=== PATIENT | female | born 1985 | race Caucasian/White ===

== ENCOUNTER 2021-02-24 12:54 | Inpatient (IN) ==
[2021-02-24 14:58] LABS: Basophils # (auto) 0.01 K/uL (0-0.2); Basophils % (auto) 0.1 %; Eosinophils # (auto) 0.02 K/uL (0-0.5); Eosinophils % (auto) 0.1 %; Hemoglobin 14.7 g/dL (12.0-16.0); Immature Granulocytes # (auto) 0.03 K/uL (0.00-0.02); Immature Granulocytes % (auto) 0.2 %; Lymphocytes # (auto) 0.91 K/uL (1.2-3.4); Lymphocytes % (auto) 6.1 %; Mean Corpuscular Hemoglobin 29.6 pg (25-34); Mean Corpuscular Volume 84.7 fL (80-100); Mean Platelet Volume 11.3 fL (7.4-10.4); Monocytes # (auto) 1.19 K/uL (0.11-0.59); Neutrophils # (auto) 12.73 K/uL (1.4-6.5); Neutrophils % (auto) 85.5 %; Platelet Count 238 K/uL (130-400); RDW Coefficient of Variation 13.7 % (11.5-14.5); RDW Standard Deviation 41.9 fL (36.4-46.3); Red Blood Count 4.96 M/uL (4.2-5.4); White Blood Count 14.89 K/uL (4.8-10.8)
[2021-02-24 15:15] LABS: Albumin Level 3.9 gm/dl (3.4-5.0); BUN Creatinine Ratio 9.7 (10-20); Calcium 9.7 mg/dl (8.5-10.1); Creatinine Clr Calc Pharmacy 100.3 ml/min; Est GFR (African American) 116.8 ml/min; Est GFR (Non-African American) 100.7 ml/min; Potassium 3.9 mmol/L (3.5-5.1)
[2021-02-24 15:18] LABS: Albumin Globulin Ratio 0.9 (0.9-2); Bilirubin,Total 0.5 mg/dl (0.2-1); Globulin 4.2 gm/dl (2.5-4.0); Total Protein 8.1 gm/dl (6.4-8.2)
[2021-02-24] MEDS ORDERED: ONDANSETRON INJ 2 MG/ML 2 ML VIAL IV STA (15:42)
[2021-02-24] MEDS ORDERED: MoRPHine SULFATE 4 MG/ML 1 ML CARP\\VIAL IV STA (15:42)
[2021-02-24] MEDS ORDERED: SODIUM CHLORIDE 0.9% 1000ML 1,000 ML IV SCH (15:43)
--- NOTE | 2021-02-24 15:47 | Emergency Department Note ---
History of Present Illness General Chief complaint: Abdominal Pain Stated complaint: ABDOMINAL PAIN, FEVER Time Seen by Provider: 02/24/21 15:15 History of Present Illness Maximum Pain Intensity: 5 Patient is a 35-year-old female who presents emergency department for evaluation of abdominal pain. Her symptoms started yesterday. It was around noon, when she began to have some sharp mid abdominal pain. She thought that it was gas pain because if she had some gas it helped a little bit initially. The pain has progressively gotten worse. It kept her up overnight. She documented a fever this morning of 101.8 F. She was little nauseous yesterday, but did not vomit. Nausea is better today but she still has no appetite. She had a few episodes of diarrhea yesterday. She denies any urinary symptoms. Her last menstrual period started last week and is tapering off. She states the pain is a constant, dull ache kind of in the mid abdomen, then becomes more sharp and contraction-like in the lower abdomen, radiating slightly toward the left. She has never had pain like this previously. She has a history of C-sections x2 and a tubal ligation. She denies any abnormal vaginal discharge. She states that it is highly unlikely that she is . Home Medications Medication Instructions Recorded Confirmed Type Lactobacillus acidophilus 10 10,000 mmu cells PO DAILY 02/24/21 02/24/21 History billion cell capsule (Probiotic) albuterol sulfate 90 mcg/actuation 2 puff INHALATION .Q4-6HR PRN 02/24/21 02/24/21 History aerosol inhaler cetirizine 10 mg tablet (Zyrtec) 10 mg PO DAILY 02/24/21 02/24/21 History cholecalciferol (vitamin D3) 25 0 mcg PO DAILY 02/24/21 02/24/21 History mcg (1,000 unit) capsule (Vitamin D3) elderberry fruit 460 mg-elderberry 1 cap PO DAILY 02/24/21 02/24/21 History flower 115 mg capsule fluticasone furoate 200 1 inh INHALATION DAILY 02/24/21 02/24/21 History mcg-vilanterol 25 mcg/dose inhalation powder (Breo Ellipta) folic acid 0.8 mg capsule 0.8 mg PO DAILY 02/24/21 02/24/21 History multivitamin 1 tab PO DAILY 02/24/21 02/24/21 History omega 3-wqd-tfq-fish oil 1,000 mg 1 cap PO DAILY 02/24/21 02/24/21 History (120 mg-180 mg) capsule (Fish Oil) zinc 50 mg tablet 50 mg PO DAILY 02/24/21 02/24/21 History Allergies Allergy/AdvReac Type Severity Reaction Status Date / Time No Known Allergies Allergy Verified 02/24/21 15:28 Past Med/Surg History Medical History (Updated 02/24/21 @ 17:40 by Marcos Nicole) Asthma Environmental and seasonal allergies Lactose intolerance Surgical History (Updated 02/24/21 @ 17:31 by Marcos Nicole) H/O section H/O tubal ligation Social History (Updated 02/24/21 @ 17:32 by Marcos Nicole) Smoking Status: Former smoker Second Hand Exposure: No; Hx Alcohol Use: Yes Alcohol type: beer, wine and hard liquor Hx Substance Use: No Preferred Language: Bulgarian Communication Ability: Effective [employer] Research Scientist Required: No Beliefs That Will Affect Care: Holiness Holiness Beliefs: Carolannh's Wittness marital status: Current Living Situation: Spouse and Family Current Living Situation Comment: 2 children. Other Information That Helps Us Care for You: No Feels Safe at Home: Yes Safety Concerns: Feels Safe At This Time Assistive Devices: None Review of Systems A total of 10 systems reviewed and were otherwise negative Physical Exam Vital Signs Vital Signs - 24 hr 02/24/21 13:16 02/24/21 16:02 02/24/21 16:06 Temperature 37.2 C Temperature Source Temporal Artery Scan Pulse Rate 96 H 80 Pulse Rate [Right] 85 Pulse Rhythm [Right] Regular Pulse Strength [Right] Normal Respiratory Rate 19 18 18 Respiratory Effort / Characteristics Non-Labored Spontaneous Respiratory Depth Normal Respiratory Pattern Regular Blood Pressure 111/78 113/62 Blood Pressure [Right Arm] 113/62 Blood Pressure Mean 89 79 Blood Pressure Mean [Right Arm] 79 Blood Pressure Position [Right Arm] Lying Pulse Oximetry 100 100 Oxygen Delivery Method Room Air Room Air Sepsis Recent Fever Within 48 Hours No Sepsis New/Unexplained Change in Mental Status N/A Sepsis Action Taken by Nursing No Action Required 02/24/21 17:00 Temperature Temperature Source Pulse Rate 81 Pulse Rate [Right] Pulse Rhythm [Right] Pulse Strength [Right] Respiratory Rate 19 Respiratory Effort / Characteristics Respiratory Depth Respiratory Pattern Blood Pressure 112/63 Blood Pressure [Right Arm] Blood Pressure Mean 79 Blood Pressure Mean [Right Arm] Blood Pressure Position [Right Arm] Pulse Oximetry Oxygen Delivery Method Sepsis Recent Fever Within 48 Hours Sepsis New/Unexplained Change in Mental Status Sepsis Action Taken by Nursing CONSTITUTIONAL: Patient is an uncomfortable appearing 35-year-old female who is awake and alert and laying on the gurney. is at the bedside. EYES: Pupils equal, round, reactive to light and accommodation. EOMs intact without nystagmus. Sclera are anicteric. ENT: Tympanic membranes intact, with normal landmarks. External canals are clear. Oral and nasopharynx are clear. Mucous membranes are moist, no lesions, tongue and gums appear normal. CARDIOVASCULAR: Regular rate and rhythm, with normal S1 and S2, no murmur or gallop or rub is heard. Peripheral pulses easily palpable. RESPIRATORY: Breath sounds equal and clear to auscultation without wheezes, rales, or rhonchi heard. Full and equal chest expansion without accessory muscle use or retractions. ABDOMEN: Bowel sounds are present. Abdomen is soft, nondistended, nontender to percussion, but moderately tender to palpation in the right lower quadrant, suprapubic and left lower quadrant area. No guarding or rebound. INTEGUMENTARY: No lesions or rash, normal skin turgor. LYMPH: No lymphadenopathy. Course Course The patient was seen and assessed as above. Old records were reviewed. She presents the emergency department for evaluation of abdominal pain. She docume nted a fever this morning. Critical pathways were implemented prior to my assessment of the patient, and CBC with differential, CMP and lipase have been collected. Urinalysis was ordered. She was hydrated with normal saline solution and medicated with morphine 4 mg and Zofran [address] scan of the abdomen and pelvis with IV contrast was ordered. Laboratory studies note an elevated white count of 14,900 with left shift and bandemia noted. Electrolytes and renal functions are normal. Lipase is within normal limits. Urine microscopy is not indicative of infection. Urine test is negative. CT scan of the abdomen and pelvis with IV contrast is consistent with acute sigmoid diverticulitis, with evidence for microperforation. Possible small intramural abscess within the sigmoid colon noted measuring 1.3 cm with no drainable fluid collection. Patient was ordered Zosyn 4.5 mg IV. Laboratory studies and CT scan findings were reviewed with her. Case was discussed with attending physician. I did review the patient's CT with general surgery on-call, Dr. Fierro, who agreed with medical admission for IV antibiotics. [facility]. Administered Medications Hydromorphone HCl (Hydromorphone Inj 0.5 Mg/0.5 Ml Syr) 0.5 mg IV Q2H PRN PRN Reason: Pain - Breakthrough Stop: 03/10/21 20:07 Last Admin: 02/24/21 20:37 Dose: 0.5 mg Documented by: [id number] Piperacillin Sod/Tazobactam (Sod 3.375 gm/ Dextrose) 115 mls @ 28.75 mls/hr IV Q8H CARLO; Protocol Stop: 03/06/21 22:59 Last Admin: 02/24/21 22:27 Dose: 28.8 mls/hr Documented by: [id number] Lactated Ringer's (Lr) 1,000 mls @ 80 mls/hr IV .[id number] CARLO Stop: 02/25/21 21:07 Last Admin: 02/24/21 20:17 Dose: 80 mls/hr Documented by: [id number] Ondansetron HCl (Ondansetron Inj 2 Mg/Ml 2 Ml Vial) 4 mg IV Q6H PRN PRN Reason: Nausea Stop: 03/26/21 20:07 Last Admin: 02/24/21 21:13 Dose: 4 mg Documented by: [id number] Discontinued Medications Sodium Chloride (Nss 1000ml) 1,000 mls @ 999 mls/hr IV .[id number] CARLO Stop: 02/24/21 16:43 Last Infusion: 02/24/21 17:04 Dose: 0 mls/hr Documented by: [id number] Admin: 02/24/21 16:03 Dose: 999 mls/hr Documented by: [id number] Sodium Chloride (Nss 1000ml) 1,000 mls @ 250 mls/hr IV .Q4H CARLO Stop: 03/26/21 15:44 Last Admin: 02/24/21 20:17 Dose: Not Given Documented by: [id number] Admin: 02/24/21 20:16 Dose: Not Given Documented by: [id number] Infusion: 02/24/21 20:16 Dose: 0 mls/hr Documented by: [id number] Admin: 02/24/21 18:06 Dose: 250 mls/hr Documented by: [id number] Piperacillin Sod/Tazobactam Sod (Zosyn) 4.5 gm in 120 mls @ 240 mls/hr IV NOW ONE Stop: 02/24/21 17:01 Last Infusion: 02/24/21 17:13 Dose: 0 mls/hr Documented by: [id number] Admin: 02/24/21 16:42 Dose: 240 mls/hr Documented by: [id number] Ioversol (Optiray 320 100ml) 94 ml IV ONCE ONE Stop: 02/24/21 16:08 Last Admin: 02/24/21 16:07 Dose: 1 ml Documented by: [id number] Morphine Sulfate (Morphine Sulfate 4 Mg/Ml 1 Ml Carp\Vial) 4 mg IV NOW STA Stop: 02/24/21 15:43 Last Admin: 02/24/21 15:58 Dose: 4 mg Documented by: [id number] Ondansetron HCl (Ondansetron Inj 2 Mg/Ml 2 Ml Vial) 4 mg IV NOW STA Stop: 02/24/21 15:43 Last Admin: 02/24/21 15:56 Dose: 4 mg Documented by: [id number] Medical Decision Making Differential Diagnosis Differential diagnoses include gastroenteritis, pancreatitis, appendicitis, pyelonephritis, urinary tract infection, renal colic, diverticulitis, bowel obstruction, intussusception, hernia, ovarian torsion, ruptured ovarian cyst, ectopic , . Medical Records Attestation: I reviewed the patient's medical records. Home Medications Current Medication List: was personally reviewed by me Laboratory Data Attestation: I reviewed the patient's lab results. Result diagrams: 02/24/21 14:49 02/24/21 14:49 Lab Results 02/24/21 02/24/21 02/24/21 Range/Units 14:49 14:49 15:48 WBC 14.89 H (4.8-10.8) K/uL RBC 4.96 (4.2-5.4) M/uL Hgb 14.7 (12.0-16.0) g/dL Hct 42.0 (37-47) % MCV 84.7 (80-100) fL MCH 29.6 (25-34) pg MCHC 35.0 (32-36) g/dL RDW Std Deviation 41.9 (36.4-46.3) fL RDW Coeff of Zaira 13.7 (11.5-14.5) % Plt Count 238 (130-400) K/uL MPV 11.3 H (7.4-10.4) fL Immature Gran % (Auto) 0.2 % Neut % (Auto) 85.5 % Lymph % (Auto) 6.1 % [place] % (Auto) 8.0 % Eos % (Auto) 0.1 % Baso % (Auto) 0.1 % Neut # (Auto) 12.73 H (1.4-6.5) K/uL Lymph # (Auto) 0.91 L (1.2-3.4) K/uL [place] # (Auto) 1.19 H (0.11-0.59) K/uL Eos # (Auto) 0.02 (0-0.5) K/uL Baso # (Auto) 0.01 (0-0.2) K/uL Immature Gran # (Auto) 0.03 H (0.00-0.02) K/uL Sodium 138 (136-145) mmol/L Potassium 3.9 (3.5-5.1) mmol/L Chloride 107 (98-107) mmol/L Carbon Dioxide 23 (21-32) mmol/L Anion Gap 8.0 (3-11) BUN 7 (7-18) mg/dl Creatinine 0.77 (0.6-1.2) mg/dl Est Cr Clr Drug Dosing 100.3 ml/min Est GFR ( Amer) 116.8 ml/min Est GFR (Non-Af Amer) 100.7 ml/min BUN/Creatinine Ratio 9.7 L (10-20) Glucose 82 (70-99) mg/dl Calcium 9.7 (8.5-10.1) mg/dl Total Bilirubin 0.5 (0.2-1) mg/dl AST 19 (15-37) U/L ALT 26 (12-78) U/L Alkaline Phosphatase 90 (45-117) U/L Total Protein 8.1 (6.4-8.2) gm/dl Albumin 3.9 (3.4-5.0) gm/dl Globulin 4.2 H (2.5-4.0) gm/dl Albumin/Globulin Ratio 0.9 (0.9-2) Lipase 89 (73-393) U/L Urine Color Yellow Urine Appearance Clear (Clear) Urine pH 5.5 (4.5-7.5) Ur Specific [place] 1.016 (1.000-1.030) Urine Protein Negative (Negative) Urine Glucose (UA) Negative (Negative) Urine Ketones Trace H (Negative) Urine Blood 1+ H (Negative) Urine Nitrite Negative (Negative) Urine Bilirubin Negative (Negative) Urine Urobilinogen Negative (Negative) Ur Leukocyte Esterase Negative (Negative) Urine WBC (Auto) 0 (0-5) /hpf Urine RBC (Auto) 0-4 (0-4) /hpf U Hyaline Cast (Auto) 1-5 (0-5) /lpf U Epithel Cells (Auto) 10-20 H (0-5) /lpf Urine Bacteria (Auto) Negative (Negative) POC Ur Test (NEG) COVID-19 Eval Order SARS-CoV-2 (PCR) (Negative) 02/24/21 02/24/21 02/24/21 Range/Units 15:48 17:28 17:28 WBC (4.8-10.8) K/uL RBC (4.2-5.4) M/uL Hgb (12.0-16.0) g/dL Hct (37-47) % MCV (80-100) fL MCH (25-34) pg MCHC (32-36) g/dL RDW Std Deviation (36.4-46.3) fL RDW Coeff of Zaira (11.5-14.5) % Plt Count (130-400) K/uL MPV (7.4-10.4) fL Immature Gran % (Auto) % Neut % (Auto) % Lymph % (Auto) % [place] % (Auto) % Eos % (Auto) % Baso % (Auto) % Neut # (Auto) (1.4-6.5) K/uL Lymph # (Auto) (1.2-3.4) K/uL [place] # (Auto) (0.11-0.59) K/uL Eos # (Auto) (0-0.5) K/uL Baso # (Auto) (0-0.2) K/uL Immature Gran # (Auto) (0.00-0.02) K/uL Sodium (136-145) mmol/L Potassium (3.5-5.1) mmol/L Chloride (98-107) mmol/L Carbon Dioxide (21-32) mmol/L Anion Gap (3-11) BUN (7-18) mg/dl Creatinine (0.6-1.2) mg/dl Est Cr Clr Drug Dosing ml/min Est GFR ( Amer) ml/min Est GFR (Non-Af Amer) ml/min BUN/Creatinine Ratio (10-20) Glucose (70-99) mg/dl Calcium (8.5-10.1) mg/dl Total Bilirubin (0.2-1) mg/dl AST (15-37) U/L ALT (12-78) U/L Alkaline Phosphatase (45-117) U/L Total Protein (6.4-8.2) gm/dl Albumin (3.4-5.0) gm/dl Globulin (2.5-4.0) gm/dl Albumin/Globulin Ratio (0.9-2) Lipase (73-393) U/L Urine Color Urine Appearance (Clear) Urine pH (4.5-7.5) Ur Specific [place] (1.000-1.030) Urine Protein (Negative) Urine Glucose (UA) (Negative) Urine Ketones (Negative) Urine Blood (Negative) Urine Nitrite (Negative) Urine Bilirubin (Negative) Urine Urobilinogen (Negative) Ur Leukocyte Esterase (Negative) Urine WBC (Auto) (0-5) /hpf Urine RBC (Auto) (0-4) /hpf U Hyaline Cast (Auto) (0-5) /lpf U Epithel Cells (Auto) (0-5) /lpf Urine Bacteria (Auto) (Negative) POC Ur Test NEG (NEG) COVID-19 Eval Order Covid19 at [facility] SARS-CoV-2 (PCR) NEGATIVE (Negative) Imaging Data Attestation: I personally reviewed and interpreted this imaging study as follows: Radiologist's Impression: Abdomen/Pelvis CT 02/24/21 15:42 CT OF THE ABDOMEN AND PELVIS WITH CONTRAST CLINICAL HISTORY: LOWER ABD PAIN, FEVER COMPARISON STUDY: Pelvic ultrasound December 31, 2013. TECHNIQUE: Following IV administration of 94 mL of Optiray, axial images of the abdomen and pelvis were obtained from the lung bases to the proximal femurs. Images were reviewed in the axial, sagittal, and coronal planes. IV contrast was administered without complication. Automated exposure control was utilized for the study. A dose lowering technique was utilized adhering to the principles of ALARA. CT DOSE: 425.23 mGy.cm FINDINGS: Lung bases are unremarkable. Hepatic steatosis is noted. There is no biliary or pancreatic ductal dilatation. The spleen, adrenal glands, kidneys and pancreas are unremarkable. There is no hydronephrosis. There is no evidence for a bowel obstruction. The appendix is normal. Note is made of colonic d iverticulosis. Moderate wall thickening of the mid sigmoid colon with moderate pericolonic infiltration and adjacent fluid is noted. There is a 1.3 cm peripherally enhancing hypodense focus within the sigmoid colon on axial image 310 of 416. This could reflect a small intramural abscess. There is no drainable fluid collection. There are a few tiny locules of extraluminal gas within the sigmoid mesentery. Major vasculature is patent. No acute fracture or suspicious lesion is identified within visualized skeletal structures. IMPRESSION: Findings consistent with acute sigmoid diverticulitis. Minimal extraluminal gas within the sigmoid mesentery suggests microperforation. Possible small intramural abscess within the sigmoid colon, measuring 1.3 cm. No drainable fluid collection. ACT 112: Negative or not required by law. Electronically signed by: Eric Buckley M.D. 02/24/2021 4:23 PM MDM Narrative See ED course Impression & Plan Sigmoid diverticulitis, Perforation of sigmoid colon due to diverticulitis Discharge Plan Visit Data Chief Complaint: Abdominal Pain Stated Complaint: ABDOMINAL PAIN, FEVER ED Provider: Lela Calvert ED Midlevel Provider: Marcos Nicole Discharge Problem: Sigmoid diverticulitis, Perforation of sigmoid colon due to diverticulitis Patient Disposition: Admitted As Inpatient Discharge Instructions Interventions: ED Discharge Assessment Last Done: 02/24/21 19:54
[2021-02-24 16:06] LABS: Appearance Urine Clear (Clear); Bacteria Urine Automated Negative (Negative); Bilirubin Urine Negative (Negative); Blood Urine 1+ (Negative); Color Urine Yellow; Glucose Urine UA Negative (Negative); Ketones Urine Trace (Negative); Leukocyte Esterase Urine Negative (Negative); Nitrite Urine Negative (Negative); Protein Urine Negative (Negative); RBC Urine Automated 0-4 /hpf (0-4); Specific Gravity Urine 1.016 (1.000-1.030); Urobilinogen Urine Negative (Negative); WBC Urine Automated 0 /hpf (0-5); pH Urine 5.5 (4.5-7.5)
[2021-02-24] MEDS ORDERED: OPTIRAY 320 100ml IV ONE (16:07)
--- NOTE | 2021-02-24 16:24 | CT Scan Report ---
CT OF THE ABDOMEN AND PELVIS WITH CONTRAST CLINICAL HISTORY: LOWER ABD PAIN, FEVER COMPARISON STUDY: Pelvic ultrasound December 31, 2013. TECHNIQUE: Following IV administration of 94 mL of Optiray, axial images of the abdomen and pelvis we re obtained from the lung bases to the proximal femurs. Images were reviewed in the axial, sagittal, and coronal planes. IV contrast was administered without complication. Automated exposure control wa s utilized for the study. A dose lowering technique was utilized adhering to the principles of ALARA . CT DOSE: 425.23 mGy.cm FINDINGS: Lung bases are unremarkable. Hepatic steatosis is noted. There is no biliary or pancreatic ductal dilatation. The spleen, adrenal glands, kidneys and pancreas are unremarkable. There is no hyd ronephrosis. There is no evidence for a bowel obstruction. The appendix is normal. Note is made of co lonic diverticulosis. Moderate wall thickening of the mid sigmoid colon with moderate pericolonic inf iltration and adjacent fluid is noted. There is a 1.3 cm peripherally enhancing hypodense focus withi n the sigmoid colon on axial image 310 of 416. This could reflect a small intramural abscess. There i s no drainable fluid collection. There are a few tiny locules of extraluminal gas within the sigmoid mesentery. Major vasculature is patent. No acute fracture or suspicious lesion is identified within v isualized skeletal structures. IMPRESSION: Findings consistent with acute sigmoid diverticulitis. Minimal extraluminal gas within t he sigmoid mesentery suggests microperforation. Possible small intramural abscess within the sigmoid colon, measuring 1.3 cm. No drainable fluid collection. ACT 112: Negative or not required by law. Electronically signed by: Eric Buckley M.D. 02/24/2021 4:23 PM
[2021-02-24] MEDS ORDERED: PIPERACILL/TAZOBAC CONSULT ACTIVE PRN ×2 (16:32→20:08)
[2021-02-24] MEDS ORDERED: PIPERACILLIN/TAZOBACTAM 4.5 GM/120 ML BAG IV ONE (16:32)
[2021-02-24] MEDS: SODIUM CHLORIDE 0.9% 1000ML 1,000 ML IV SCH ×3 (18:06→20:17)
--- NOTE | 2021-02-24 18:09 | Hospitalist Consultation ---
Date of Consultation February 24, 2021 Assessment & Plan (1) Sigmoid diverticulitis: Yoselin is a 35-year-old female with a notable past medical history of asthma and X2 with tubal ligation who presented to [facility] for evaluation of abdominal pain x 1 day, subsequently found to have Evidence of acute sigmoid diverticulitis with possible microperforation and small intramural abscess. She is hemodynamically stable. Acute Sigmoid Diverticulitis * In the clinical context of LLQ abdominal pain x 1 day and fevers * CT-A/P Revealing of acute sigmoid diverticulitis with possible small microperforation and 1.3 cm intramural abscess * Lytes, CBC reviewed - stable * Consult General Surgery for aid in management / planning for any need for aspiration / procedural intervention * Admit to MS/Tele for hemodynamic monitoring in setting of likely microperforation and small abscess * Zosyn 3.375mg q8h * NPO * CBC, CMP qAM * KUB in AM, evaluate for free air Of note, patient identifies as a Sabianist and has requested that she not receive any sort of blood products, including albumin, immunoglobulins, clotting factors, hemoglobin/packed blood products, interferons. She has requested that in any special circumstance, she and her power of attorneywho is her husbandare to be spoken to first. Asthma * Continue home inhalers - Breo, Albuterol PRN * No acute needs, saturating well on RA Code: FULL CODE PPX: SCDs, low risk FEN/GI: NPO. mIVF = LR @ 80cc/hr, stop after 2 bags Dispo: MS/Tele (2) Asthma: History of Present Illness Reason for Consultation: diverticulitis Attending Physician: Mia Sosa DO History of Present Illness Yoselin is a 35-year-old female with a notable past medical history of asthma and X2 with tubal ligation who presented to [facility] for evaluation of abdominal pain. She reports that this began yesterday, initially beginning as a somewhat crampy, dull intermittent pain within the lower quadrants. She said that it got much worse yesterday evening, so much that it interrupted her sleep. Thereafter, she did develop more sharp left lower quadrant pain. She also had a T-max of approximately 101.8 at home. She did endorse some nausea without vomiting. Denies any major changes in her bowel movements, other than may be more loose stool yesterday. No hematochezia or melena. She has not taken anything for pain prior to arrival. She says that her last menstrual period ended several days ago, up until this time they have been otherwise regular. Denies any intermittent spotting or bleeding. No other complaints. Regarding her past medical history, it is significant for asthma for which she takes of Breo and albuterol inhaler as needed. She also endorses having cervical HPV once in the past with subsequent biopsy. She also endorses occasionally using medical marijuana for her anxiety. She has no personal history of bowel disease or family history of bowel disease. Denies any history of inflammatory bowel disease. Abdominal surgery - c/s x 2. FHX - Notes that her mom had diverticulitis in her older years, but otherwise no problems throughout. Endorses diabetes in her maternal family. Also says that her paternal grandfather had multiple strokes and heart attacks.. SHX - She denies smoking cigarettes or tobacco use. She denies regular alcohol use. Medical marijuana as above. Of note, patient identifies as a Sabianist and has requested that she not receive any sort of blood products, including albumin, immunoglobulins, clotting factors, hemoglobin/packed blood products, interferons. She has requested that in any special circumstance, she and her power of attorneywho is her husbandare spoken to first. In the ED, patient was found to be afebrile and hemodynamically stable. Did undergo CT of the abdomen pelvis, which showed diverticulitis with possible small microperforation and intramural abscess. Given IV fluids, as well as morphine and Zofran. Received 1 L bolus of normal saline. Allergies Allergy/AdvReac Type Severity Reaction Status Date / Time No Known Allergies Allergy Verified 02/24/21 15:28 Home Medications Medication Instructions Recorded Confirmed Type Lactobacillus acidophilus 10 10,000 mmu cells PO DAILY 02/24/21 02/24/21 History billion cell capsule (Probiotic) albuterol sulfate 90 mcg/actuation 2 puff INHALATION .Q4-6HR PRN 02/24/21 02/24/21 History aerosol inhaler cetirizine 10 mg tablet (Zyrtec) 10 mg PO DAILY 02/24/21 02/24/21 History cholecalciferol (vitamin D3) 25 0 mcg PO DAILY 02/24/21 02/24/21 History mcg (1,000 unit) capsule (Vitamin D3) elderberry fruit 460 mg-elderberry 1 cap PO DAILY 02/24/21 02/24/21 History flower 115 mg capsule fluticasone furoate 200 1 inh INHALATION DAILY 02/24/21 02/24/21 History mcg-vilanterol 25 mcg/dose inhalation powder (Breo Ellipta) folic acid 0.8 mg capsule 0.8 mg PO DAILY 02/24/21 02/24/21 History multivitamin 1 tab PO DAILY 02/24/21 02/24/21 History omega 0-xvc-xil-fish oil 1,000 mg 1 cap PO DAILY 02/24/21 02/24/21 History (120 mg-180 mg) capsule (Fish Oil) zinc 50 mg tablet 50 mg PO DAILY 02/24/21 02/24/21 History amoxicillin 875 mg-potassium 1 tab PO BID 11 Days #22 tab 02/27/21 Rx clavulanate 125 mg tablet (Augmentin) Patient History Medical History (Updated 02/28/21 @ 00:08 by Latonya Harrell) Asthma Environmental and seasonal allergies Lactose intolerance Perforation of sigmoid colon due to diverticulitis Surgical History (Updated 02/24/21 @ 17:31 by Marcos Nicole) H/O section H/O tubal ligation Social History (Updated 02/24/21 @ 17:32 by Marcos Nicole) Smoking Status: Former smoker Second Hand Exposure: No; Hx Alcohol Use: Yes Alcohol type: beer, wine and hard liquor Hx Substance Use: No Preferred Language: Moldovan Communication Ability: Effective Drug Discovery Informatics Specialist Required: No Beliefs That Will Affect Care: Oriental Orthodox Oriental Orthodox Beliefs: Jehovah's Wittness marital status: Current Living Situation: Spouse and Family Current Living Situation Comment: 2 children. Feels Safe at Home: Yes Assistive Devices: None Review of Systems Review of Systems: Constitutional: +fevers, as noted in HPI Eyes: Denies double vision, vision change, eye pain ENT: Denies ear pain, sore throat, sinus pain Cardiovascular: Denies Chest pain, chest pressure, palpitations, extremity swelling Respiratory: Denies shortness of breath, cough, sputum production, difficulty breathing Gastrointestinal: + abdominal pain, +nausea, no vomiting, constipation Genitourinary: Denies urinary symptoms including dysuria Musculoskeletal: Denies weakness, muscle aches/pain, joint aches/pain Integumentary: Denies rash, lesions, bruising Neurological: Denies headache, numbness, tingling, focal weakness Physical Exam Physical Exam: General: Overall, well but tired appearing 35-year-old female who is lying back in her hospital bed, relaxed upon my arrival. She is watching TV. She is freely conversive and alert and oriented completely throughout her discussion. No acute distress. HEENT: NCAT. Eyes - Sclera are white, anicteric, and without injection. PERRL. EOMs display full ROM bilaterally. Mouth - MMM with no tonsillar edema or exudates. Nose - nasal turbinates are uninflamed and without discharge. Ears - External ears appears healthy b/l with no erythema or rashes; TMs displayed white reflex b/l and are non-bulging, uninflamed, and reveal no signs of fluid accumulation. Cardiac: Normal rate and regular rhythm; S1 and S2 present with no murmurs, rubs, or gallops. Pulmonary: Good respiratory effort with symmetric expansion of the chest. No use of accessory muscles. Lungs were clear to auscultation bilaterally with no crackles or wheezes. Abdominal: Normoactive bowel sounds. Abdomen was soft and nondistended. There is significant left lower quadrant and suprapubic tenderness to palpation. Facial grimacing evident, but no rebound or guarding. No CVA tenderness Extremities: Upper and lower extremities are warm and well perfused. Psych: Well-developed, well-nourished, appropriately dressed for occasion. Behavior is cooperative and appropriate. Affect is WNL. Insight is appropriate. Results & Data Results & Data ([facility]) Vital Signs (Past 12 Hours) Vital Signs Temp Pulse Pulse Resp BP BP Pulse Ox 02/24/21 17:00 81 19 112/63 02/24/21 16:06 85 18 113/62 100 02/24/21 16:02 80 18 113/62 02/24/21 13:16 37.2 C 96 H 19 111/78 100 Resident Activity Tracking Resident Involvement: Resident Care Provided Care Provided: Adult [facility] Medicine
--- NOTE | 2021-02-24 18:37 | Surgery Consultation ---
Date of Consultation February 24, 2021 Assessment & Plan (1) Sigmoid diverticulitis: pt is a 35 year-old female who presents to [facility] with 2one day history lower abdominal pain, CT scan- IMPRESSION: Findings consistent with acute sigmoid diverticulitis. Minimal extraluminal gas within the sigmoid mesentery suggests microperforation. Possible small intramural abscess within the sigmoid colon, measuring 1.3 cm. No drainable fluid collection. no emergent surgery indication now, i agree with medicine team admit pt to hospital conservative treatment first, NPO, IV fluid, iv antibiotic, control pain, repeat labs in morning, may need surgery treatment if pt's condition is worse, pt understood, she agrees with the treatment plan, I answered all questions, will F/U, History of Present Illness Reason for Consultation: diverticulitis Requesting Physician: Quyen Stratton DO Attending Physician: Hollis Daigle MD History of Present Illness CC: abdominal pain History of Present Illness Yoselin is a 35-year-old female with a notable past medical history of asthma and X2 with tubal ligation who presented to [facility] for evaluation of abdominal pain. She reports that this began yesterday, initially beginning as a somewhat crampy, dull intermittent pain within the lower quadrants. She said that it got much worse yesterday evening, so much that it interrupted her sleep. Thereafter, she did develop more sharp left lower quadrant pain. She also had a T-max of approximately 101.8 at home. She did endorse some nausea without vomiting. Denies any major changes in her bowel movements, other than may be more loose stool yesterday. No hematochezia or melena. She has not taken anything for pain prior to arrival. She says that her last menstrual period ended several days ago, up until this time they have been otherwise regular. Denies any intermittent spotting or bleeding. No other complaints. Regarding her past medical history, it is significant for asthma for which she takes of Breo and albuterol inhaler as needed. She also endorses having cervical HPV once in the past with subsequent biopsy. She also endorses occasionally using medical marijuana for her anxiety. She has no personal history of bowel disease or family history of bowel disease. Denies any history of inflammatory bowel disease. Abdominal surgery - c/s x 2. FHX - Notes that her mom had diverticulitis in her older years, but otherwise no problems throughout. Endorses diabetes in her maternal family. Also says that her paternal grandfather had multiple strokes and heart attacks.. SHX - She denies smoking cigarettes or tobacco use. She denies regular alcohol use. Medical marijuana as above. Of note, patient identifies as a Judaism and has requested that she not receive any sort of blood products, including albumin, immunoglobulins, clotting factors, hemoglobin/packed blood products, interferons. She has requested that in any special circumstance, she and her power of attorneywho is her husbandare spoken to first. In the ED, patient was found to be afebrile and hemodynamically stable. Did undergo CT of the abdomen pelvis, which showed diverticulitis with possible small microperforation and intramural abscess. Given IV fluids, as well as morphine and Zofran. Received 1 L bolus of normal saline. I ( Ricardo Fierro mD ) got a call for consult acute diverticulitis, I reviewed pt's H/P, labs, CT scan with pt, now pt feels better, less lower abdominal pain, no fever now, Allergies Allergy/AdvReac Type Severity Reaction Status Date / Time No Known Allergies Allergy Verified 02/24/21 15:28 Home Medications Medication Instructions Recorded Confirmed Type Lactobacillus acidophilus 10 10,000 mmu cells PO DAILY 02/24/21 02/24/21 History billion cell capsule (Probiotic) albuterol sulfate 90 mcg/actuation 2 puff INHALATION .Q4-6HR PRN 02/24/21 02/24/21 History aerosol inhaler cetirizine 10 mg tablet (Zyrtec) 10 mg PO DAILY 02/24/21 02/24/21 History cholecalciferol (vitamin D3) 25 0 mcg PO DAILY 02/24/21 02/24/21 History mcg (1,000 unit) capsule (Vitamin D3) elderberry fruit 460 mg-elderberry 1 cap PO DAILY 02/24/21 02/24/21 History flower 115 mg capsule fluticasone furoate 200 1 inh INHALATION DAILY 02/24/21 02/24/21 History mcg-vilanterol 25 mcg/dose inhalation powder (Breo Ellipta) folic acid 0.8 mg capsule 0.8 mg PO DAILY 02/24/21 02/24/21 History multivitamin 1 tab PO DAILY 02/24/21 02/24/21 History omega 2-ewd-ykn-fish oil 1,000 mg 1 cap PO DAILY 02/24/21 02/24/21 History (120 mg-180 mg) capsule (Fish Oil) zinc 50 mg tablet 50 mg PO DAILY 02/24/21 02/24/21 History Patient History Medical History (Updated 02/24/21 @ 17:40 by Marcos Nicole) Asthma Environmental and seasonal allergies Lactose intolerance Surgical History (Updated 02/24/21 @ 17:31 by Marcos Nicole) H/O section H/O tubal ligation Social History (Updated 02/24/21 @ 17:32 by Marcos Nicole) Smoking Status: Never smoker marital status: Current Living Situation: Family Feels Safe at Home: Yes Review of Systems Review of Systems: Constitutional: +fevers, as noted in HPI Eyes: Denies double vision, vision change, eye pain ENT: Denies ear pain, sore throat, sinus pain Cardiovascular: Denies Chest pain, chest pressure, palpitations, extremity swelling Respiratory: Denies shortness of breath, cough, sputum production, difficulty breathing Gastrointestinal: + abdominal pain, +nausea, no vomiting, constipation Genitourinary: Denies urinary symptoms including dysuria Musculoskeletal: Denies weakness, muscle aches/pain, joint aches/pain Integumentary: Denies rash, lesions, bruising Neurological: Denies headache, numbness, tingling, focal weakness Allergies Allergy/AdvReac Type Severity Reaction Status Date / Time No Known Allergies Allergy Verified 02/24/21 15:28 Home Medications Medication Instructions Recorded Confirmed Type Lactobacillus acidophilus 10 10,000 mmu cells PO DAILY 02/24/21 02/24/21 History billion cell capsule (Probiotic) albuterol sulfate 90 mcg/actuation 2 puff INHALATION .Q4-6HR PRN 02/24/21 02/24/21 History aerosol inhaler cetirizine 10 mg tablet (Zyrtec) 10 mg PO DAILY 02/24/21 02/24/21 History cholecalciferol (vitamin D3) 25 0 mcg PO DAILY 02/24/21 02/24/21 History mcg (1,000 unit) capsule (Vitamin D3) elderberry fruit 460 mg-elderberry 1 cap PO DAILY 02/24/21 02/24/21 History flower 115 mg capsule fluticasone furoate 200 1 inh INHALATION DAILY 02/24/21 02/24/21 History mcg-vilanterol 25 mcg/dose inhalation powder (Breo Ellipta) folic acid 0.8 mg capsule 0.8 mg PO DAILY 02/24/21 02/24/21 History multivitamin 1 tab PO DAILY 02/24/21 02/24/21 History omega 1-yna-bet-fish oil 1,000 mg 1 cap PO DAILY 02/24/21 02/24/21 History (120 mg-180 mg) capsule (Fish Oil) zinc 50 mg tablet 50 mg PO DAILY 02/24/21 02/24/21 History Patient History Medical History (Updated 02/24/21 @ 17:40 by Marcos Nicole) Asthma Environmental and seasonal allergies Lactose intolerance Surgical History (Updated 02/24/21 @ 17:31 by Marcos Nicole) H/O section H/O tubal ligation Social History (Updated 02/24/21 @ 17:32 by Marcos Nicole) Smoking Status: Never smoker marital status: Current Living Situation: Family Feels Safe at Home: Yes Physical Exam Eyes: PERRL, conjunctivae normal, anicteric sclerae Neck: trachea midline, no thyromegaly Respiratory: normal respiratory effort, lungs clear to auscultation Cardiovascular: RRR, no murmur, no edema Gastrointestinal (Abdomen): soft, tenderness at lower abdominal pain, no rebound pain, no distend, BS + Musculoskeletal: no cyanosis or clubbing, extremities motor strength 5/5 Neurologic: patellar DTR's 2+ bilat, sensation intact Psychiatric: A+Ox3, euthymic affect Results & Data ([facility]) Vital Signs (Past 12 Hours) Vital Signs Temp Pulse Pulse Resp BP BP Pulse Ox 02/24/21 17:00 81 19 112/63 02/24/21 16:06 85 18 113/62 100 02/24/21 16:02 80 18 113/62 02/24/21 13:16 37.2 C 96 H 19 111/78 100 Laboratory Results Abnormal lab results 02/24/21 02/24/21 02/24/21 Range/Units 14:49 14:49 15:48 WBC 14.89 H (4.8-10.8) K/uL MPV 11.3 H (7.4-10.4) fL Neut # (Auto) 12.73 H (1.4-6.5) K/uL Lymph # (Auto) 0.91 L (1.2-3.4) K/uL Dunn # (Auto) 1.19 H (0.11-0.59) K/uL Immature Gran # (Auto) 0.03 H (0.00-0.02) K/uL BUN/Creatinine Ratio 9.7 L (10-20) Globulin 4.2 H (2.5-4.0) gm/dl Urine Ketones Trace H (Negative) Urine Blood 1+ H (Negative) U Epithel Cells (Auto) 10-20 H (0-5) /lpf Diagnostic Findings CT OF THE ABDOMEN AND PELVIS WITH CONTRAST CLINICAL HISTORY: LOWER ABD PAIN, FEVER COMPARISON STUDY: Pelvic ultrasound December 31, 2013. TECHNIQUE: Following IV administration of 94 mL of Optiray, axial images of the abdomen and pelvis were obtained from the lung bases to the proximal femurs. Images were reviewed in the axial, sagittal, and coronal planes. IV contrast was administered without complication. Automated exposure control was utilized for the study. A dose lowering technique was utilized adhering to the principles of ALARA. CT DOSE: 425.23 mGy.cm FINDINGS: Lung bases are unremarkable. Hepatic steatosis is noted. There is no biliary or pancreatic ductal dilatation. The spleen, adrenal glands, kidneys and pancreas are unremarkable. There is no hydronephrosis. There is no evidence for a bowel obstruction. The appendix is normal. Note is made of colonic diverticulosis. Moderate wall thickening of the mid sigmoid colon with moderate pericolonic infiltration and adjacent fluid is noted. There is a 1.3 cm peripherally enhancing hypodense focus within the sigmoid colon on axial image 310 of 416. This could reflect a small intramural abscess. There is no drainable fluid collection. There are a few tiny locules of extraluminal gas within the sigmoid mesentery. Major vasculature is patent. No acute fracture or suspicious lesion is identified within visualized skeletal structures.
[2021-02-24] MEDS ORDERED: ONDANSETRON INJ 2 MG/ML 2 ML VIAL IV PRN (20:08)
[2021-02-24] MEDS ORDERED: ALBUTEROL HFA 8 GM INHALER INH PRN (20:08)
[2021-02-24] MEDS: LACTATED RINGER'S 1,000 ML IV SCH (20:17)
--- NOTE | 2021-02-24 20:26 | History & Physical Report ---
Date of Service February 24, 2021 Assessment & Plan (1) Sigmoid diverticulitis: Plan: Yoselin is a 35-year-old female with a notable past medical history of asthma and X2 with tubal ligation who presented to [facility] for evaluation of abdominal pain x 1 day, subsequently found to have Evidence of acute sigmoid diverticulitis with possible microperforation and small intramural abscess. She is hemodynamically stable. Acute Sigmoid Diverticulitis * In the clinical context of LLQ abdominal pain x 1 day and fevers * CT-A/P Revealing of acute sigmoid diverticulitis with possible small microperforation and 1.3 cm intramural abscess * Lytes, CBC reviewed - stable * Consult General Surgery for aid in management / planning for any need for aspiration / procedural intervention * Admit to MS/Tele for hemodynamic monitoring in setting of likely microperforation and small abscess * Zosyn 3.375mg q8h * NPO * CBC, CMP qAM * KUB in AM, evaluate for free air Of note, patient identifies as a Latter-day and has requested that she not receive any sort of blood products, including albumin, immunoglobulins, clotting factors, hemoglobin/packed blood products, interferons. She has requested that in any special circumstance, she and her power of attorneywho is her husbandare to be spoken to first. Asthma * Continue home inhalers - Breo, Albuterol PRN * No acute needs, saturating well on RA Code: FULL CODE PPX: SCDs, low risk FEN/GI: NPO. mIVF = LR @ 80cc/hr, stop after 2 bags Dispo: MS/Tele (2) Perforation of sigmoid colon due to diverticulitis: (3) Asthma: Admission and Anticipated Discharge Date Admission Date: February 24, 2021 History of Present Illness Primary Care Provider: Quyen Rodriguez Yoselin is a 35-year-old female with a notable past medical history of asthma and X2 with tubal ligation who presented to [facility] for evaluation of abdominal pain. She reports that this began yesterday, initially beginning as a somewhat crampy, dull intermittent pain within the lower quadrants. She said that it got much worse yesterday evening, so much that it interrupted her sleep. Thereafter, she did develop more sharp left lower quadrant pain. She also had a T-max of approximately 101.8 at home. She did endorse some nausea without vomiting. Denies any major changes in her bowel movements, other than may be more loose stool yesterday. No hematochezia or melena. She has not taken anything for pain prior to arrival. She says that her last menstrual period ended several days ago, up until this time they have been otherwise regular. Denies any intermittent spotting or bleeding. No other complaints. Regarding her past medical history, it is significant for asthma for which she takes of Breo and albuterol inhaler as needed. She also endorses having cervical HPV once in the past with subsequent biopsy. She also endorses occasionally using medical marijuana for her anxiety. She has no personal history of bowel disease or family history of bowel disease. Denies any history of inflammatory bowel disease. Abdominal surgery - c/s x 2. FHX - Notes that her mom had diverticulitis in her older years, but otherwise no problems throughout. Endorses diabetes in her maternal family. Also says that her paternal grandfather had multiple strokes and heart attacks.. SHX - She denies smoking cigarettes or tobacco use. She denies regular alcohol use. Medical marijuana as above. Of note, patient identifies as a Latter-day and has requested that she not receive any sort of blood products, including albumin, immunoglobulins, clotting factors, hemoglobin/packed blood products, interferons. She has requested that in any special circumstance, she and her power of attorneywho is her husbandare spoken to first. In the ED, patient was found to be afebrile and hemodynamically stable. Did undergo CT of the abdomen pelvis, which showed diverticulitis with possible small microperforation and intramural abscess. Given IV fluids, as well as morphine and Zofran. Received 1 L bolus of normal saline. Allergies Allergy/AdvReac Type Severity Reaction Status Date / Time No Known Allergies Allergy Verified 02/24/21 15:28 Home Medications Medication Instructions Recorded Confirmed Type Lactobacillus acidophilus 10 10,000 mmu cells PO DAILY 02/24/21 02/24/21 History billion cell capsule (Probiotic) albuterol sulfate 90 mcg/actuation 2 puff INHALATION .Q4-6HR PRN 02/24/21 02/24/21 History aerosol inhaler cetirizine 10 mg tablet (Zyrtec) 10 mg PO DAILY 02/24/21 02/24/21 History cholecalciferol (vitamin D3) 25 0 mcg PO DAILY 02/24/21 02/24/21 History mcg (1,000 unit) capsule (Vitamin D3) elderberry fruit 460 mg-elderberry 1 cap PO DAILY 02/24/21 02/24/21 History flower 115 mg capsule fluticasone furoate 200 1 inh INHALATION DAILY 02/24/21 02/24/21 History mcg-vilanterol 25 mcg/dose inhalation powder (Breo Ellipta) folic acid 0.8 mg capsule 0.8 mg PO DAILY 02/24/21 02/24/21 History multivitamin 1 tab PO DAILY 02/24/21 02/24/21 History omega 7-fzl-btj-fish oil 1,000 mg 1 cap PO DAILY 02/24/21 02/24/21 History (120 mg-180 mg) capsule (Fish Oil) zinc 50 mg tablet 50 mg PO DAILY 02/24/21 02/24/21 History Past Med/Surg History Medical History (Updated 02/24/21 @ 17:40 by Marcos Nicole) Asthma Environmental and seasonal allergies Lactose intolerance Surgical History (Updated 02/24/21 @ 17:31 by Marcos Nicole) H/O section H/O tubal ligation Social History (Updated 02/24/21 @ 17:32 by Marcos Nicole) Smoking Status: Former smoker Second Hand Exposure: No; Hx Alcohol Use: Yes Alcohol type: beer, wine and hard liquor Hx Substance Use: No Preferred Language: Luxembourgish Communication Ability: Effective Top Lift And Automatic Window Repairer Required: No Beliefs That Will Affect Care: Yazidism Yazidism Beliefs: Nandohovah's Wittness marital status: Current Living Situation: Spouse and Family Current Living Situation Comment: 2 children. Other Information That Helps Us Care for You: No Feels Safe at Home: Yes Safety Concerns: Feels Safe At This Time Assistive Devices: None Review of Systems Review of Systems: Constitutional: +fevers, as noted in HPI Eyes: Denies double vision, vision change, eye pain ENT: Denies ear pain, sore throat, sinus pain Cardiovascular: Denies Chest pain, chest pressure, palpitations, extremity swelling Respiratory: Denies shortness of breath, cough, sputum production, difficulty breathing Gastrointestinal: + abdominal pain, +nausea, no vomiting, constipation Genitourinary: Denies urinary symptoms including dysuria Musculoskeletal: Denies weakness, muscle aches/pain, joint aches/pain Integumentary: Denies rash, lesions, bruising Neurological: Denies headache, numbness, tingling, focal weakness Physical Exam Physical Exam: General: Overall, well but tired appearing 35-year-old female who is lying back in her hospital bed, relaxed upon my arrival. She is watching TV. She is freely conversive and alert and oriented completely throughout her discussion. No acute distress. HEENT: NCAT. Eyes - Sclera are white, anicteric, and without injection. PERRL. EOMs display full ROM bilaterally. Mouth - MMM with no tonsillar edema or exudates. Nose - nasal turbinates are uninflamed and without discharge. Ears - External ears appears healthy b/l with no erythema or rashes; TMs displayed white reflex b/l and are non-bulging, uninflamed, and reveal no signs of fluid accumulation. Cardiac: Normal rate and regular rhythm; S1 and S2 present with no murmurs, rubs, or gallops. Pulmonary: Good respiratory effort with symmetric expansion of the chest. No use of accessory muscles. Lungs were clear to auscultation bilaterally with no crackles or wheezes. Abdominal: Normoactive bowel sounds. Abdomen was soft and nondistended. There is significant left lower quadrant and suprapubic tenderness to palpation. Facial grimacing evident, but no rebound or guarding. No CVA tenderness Extremities: Upper and lower extremities are warm and well perfused. Psych: Well-developed, well-nourished, appropriately dressed for occasion. Behavior is cooperative and appropriate. Affect is WNL. Insight is appropriate. Results & Data Results & Data ([facility]) Vital Signs (Past 12 Hours) Vital Signs Temp Pulse Pulse Resp BP BP Pulse Ox 02/24/21 19:00 77 17 105/57 L 100 02/24/21 18:36 80 20 113/63 98 02/24/21 17:00 81 19 112/63 02/24/21 16:06 85 18 113/62 100 02/24/21 16:02 80 18 113/62 02/24/21 13:16 37.2 C 96 H 19 111/78 100 Code Status & VTE Plan VTE Prophylaxis Plan VTE Prophylaxis will be ordered: Yes Supervising Physician Co-Signing Physician Notes Patient seen and examined, chart reviewed, case discussed with Dr. Daigle and I agree with the assessment and plan as documented above. Briefly, patient is a 35 yo female with history of asthma presenting with abdominal pain and fever. Patient found to have acute sigmoid diverticulitis with microperforation and small abscess formation. No history of prior. On exam she is afebrile, hemodynamically stable, non-toxic in appearance, NAD but in discomfort Skin - intact, no rashes or lesions HEENT - NC/AT, PERRL, MMM, Neck supple Heart - +S1/S2, regular, no m/r/g Lungs - CTA Abd - +BS, soft, ND, tender in lower abdomen with some voluntary guarding, no rebound tenderness Ext - warm, well perfused, no clubbing/edema or cyanosis Neuro - grossly intact Labs and images reviewed. Significant for leukocytosis with Wbc=14.89 with elevated neutrophil:lymphocyte and bands CT with acute sigmoid diverticulitis with minimal extraluminal abhinav suggestive of microperforation as well as possible intramural abscess of 1.3cm Assessment/Plan -35yo female presenting with acute sigmoid diverticulitis with microperforation and small abscess. She is afebrile, HD stable, non-toxic in appearance. Abdomen is tender but non-surgical. Abscess is small <4cm and will most likely resolve with antibiotics. No indication for surgical drainage at this time -Admit to medical service -Keep NPO for now, will advance diet as tolerated as symptoms improve -IVF and pain control -Treatment with IV antibiotics - Zosyn - for now - should complete 10-14 day course of antibiotics -Appreciate General Surgery assistance. No surgical intervention at this time. -Repeat imaging should symptoms persist or worsen -Followup colonoscopy in 6-8 weeks recommended -Remainder of plan as above Resident Activity Tracking Resident Involvement: Resident Care Provided Care Provided: Adult [facility] Medicine
[2021-02-24] MEDS ORDERED: PNEUMOCOCCAL POLYSACCHARIDES 25 MCG/0.5 ML VIAL/SYR IM ONE (20:29)
[2021-02-24] MEDS: HYDROmorphone INJ 0.5 MG/0.5 ML SYR IV PRN (20:37)
[2021-02-24] MEDS: PIPERACILLIN/TAZOBACTAM 3.375 GM in DEXTROSE 5% 100 ML IV SCH (22:27)
[2021-02-25] MEDS: HYDROmorphone INJ 0.5 MG/0.5 ML SYR IV PRN (03:31)
[2021-02-25 07:40] LABS: Basophils # (auto) 0.02 K/uL (0-0.2); Basophils % (auto) 0.2 %; Eosinophils # (auto) 0.02 K/uL (0-0.5); Eosinophils % (auto) 0.2 %; Hematocrit (blood only) 35.5 % (37-47); Hemoglobin 12.3 g/dL (12.0-16.0); Immature Granulocytes # (auto) 0.01 K/uL (0.00-0.02); Immature Granulocytes % (auto) 0.1 %; Lymphocytes # (auto) 1.43 K/uL (1.2-3.4); Lymphocytes % (auto) 13.7 %; Mean Corpuscular Hemoglobin 29.3 pg (25-34); Mean Corpuscular Hgb Conc 34.6 g/dL (32-36); Mean Corpuscular Volume 84.5 fL (80-100); Mean Platelet Volume 11.4 fL (7.4-10.4); Monocytes # (auto) 0.78 K/uL (0.11-0.59); Monocytes % (auto) 7.5 %; Neutrophils # (auto) 8.18 K/uL (1.4-6.5); Neutrophils % (auto) 78.3 %; Platelet Count 197 K/uL (130-400); RDW Coefficient of Variation 13.7 % (11.5-14.5); RDW Standard Deviation 41.5 fL (36.4-46.3); White Blood Count 10.44 K/uL (4.8-10.8)
[2021-02-25] MEDS: ACETAMINOPHEN 1000 MG/100 ML IV IV PRN ×2 (07:43→14:08)
[2021-02-25 08:10] LABS: Albumin Level 2.9 gm/dl (3.4-5.0); BUN Creatinine Ratio 10.7 (10-20); Calcium 8.6 mg/dl (8.5-10.1); Creatinine Clr Calc Pharmacy 106.5 ml/min; Est GFR (African American) 124.5 ml/min; Est GFR (Non-African American) 107.5 ml/min; Potassium 3.4 mmol/L (3.5-5.1)
[2021-02-25 08:13] LABS: Albumin Globulin Ratio 0.7 (0.9-2); Bilirubin,Total 0.5 mg/dl (0.2-1); Total Protein 6.9 gm/dl (6.4-8.2)
[2021-02-25] MEDS: PIPERACILLIN/TAZOBACTAM 3.375 GM in DEXTROSE 5% 100 ML IV SCH ×3 (08:26→23:15)
[2021-02-25] MEDS: FLUTICASONE/VILANTEROL 200/25MCG 14 PUFFS/INHALER INH SCH (09:16)
--- NOTE | 2021-02-25 09:42 | Progress Note ---
Date of Service February 25, 2021 Assessment & Plan (1) Sigmoid diverticulitis: Plan: pt is a 35 year-old female who presents to [facility] with 2one day history lower abdominal pain, CT scan- IMPRESSION: Findings consistent with acute sigmoid diverticulitis. Minimal extraluminal gas within the sigmoid mesentery suggests microperforation. Possible small intramural abscess within the sigmoid colon, measuring 1.3 cm. No drainable fluid collection. Plan: no emergent surgery indication now, i agree with medicine team admit pt to hospital conservative treatment first, NPO, IV fluid, iv antibiotic, control p ain, repeat labs in morning, may need surgery treatment if pt's condition is worse, pt understood, she agrees with the treatment plan, I answered all questions, will F/U, 02/25/2021 9:41AM doing better, continue IV antibiotic, possible start clear diet tomorrow, repeat labs in morning, will F/U, Admission and Anticipated Discharge Date Admission Date: February 24, 2021 Subjective F/U diverticulitis, doing better, less abdominal pain, no nausea, no vomiting, nom fever, Physical Exam Eyes: PERRL, conjunctivae normal, anicteric sclerae Neck: trachea midline, no thyromegaly Respiratory: normal respiratory effort, lungs clear to auscultation Cardiovascular: RRR, no murmur, no edema Gastrointestinal (Abdomen): soft, mild tenderness at lower abdomen, no rebound pain, Musculoskeletal: no cyanosis or clubbing, extremities motor strength 5/5 Neurologic: patellar DTR's 2+ bilat, sensation intact Psychiatric: A+Ox3, euthymic affect Results & Data ([facility]) Vital Signs (Past 12 Hours) Vital Signs Temp Pulse Pulse Resp BP Pulse Ox 02/25/21 07:48 36.9 C 86 18 107/70 99 02/25/21 07:00 79 02/25/21 03:23 37.1 C 86 18 107/62 99 02/24/21 23:50 37.6 C H 93 H 19 113/68 98 02/24/21 23:34 92 H Laboratory Results Abnormal lab results 02/24/21 02/24/21 02/24/21 Range/Units 14:49 14:49 15:48 WBC 14.89 H (4.8-10.8) K/uL Hct (37-47) % MPV 11.3 H (7.4-10.4) fL Neut # (Auto) 12.73 H (1.4-6.5) K/uL Lymph # (Auto) 0.91 L (1.2-3.4) K/uL [place] # (Auto) 1.19 H (0.11-0.59) K/uL Immature Gran # (Auto) 0.03 H (0.00-0.02) K/uL Potassium (3.5-5.1) mmol/L BUN/Creatinine Ratio 9.7 L (10-20) AST (15-37) U/L Albumin (3.4-5.0) gm/dl Globulin 4.2 H (2.5-4.0) gm/dl Albumin/Globulin Ratio (0.9-2) Urine Ketones Trace H (Negative) Urine Blood 1+ H (Negative) U Epithel Cells (Auto) 10-20 H (0-5) /lpf 02/25/21 02/25/21 Range/Units 07:05 07:05 WBC (4.8-10.8) K/uL Hct 35.5 L (37-47) % MPV 11.4 H (7.4-10.4) fL Neut # (Auto) 8.18 H (1.4-6.5) K/uL Lymph # (Auto) (1.2-3.4) K/uL [place] # (Auto) 0.78 H (0.11-0.59) K/uL Immature Gran # (Auto) (0.00-0.02) K/uL Potassium 3.4 L (3.5-5.1) mmol/L BUN/Creatinine Ratio (10-20) AST 9 L (15-37) U/L Albumin 2.9 L (3.4-5.0) gm/dl Globulin (2.5-4.0) gm/dl Albumin/Globulin Ratio 0.7 L (0.9-2) Urine Ketones (Negative) Urine Blood (Negative) U Epithel Cells (Auto) (0-5) /lpf
--- NOTE | 2021-02-25 10:33 | XRay Report ---
XR KUB/Abdomen 1 view CLINICAL HISTORY: diverticulitis COMPARISON STUDY: No previous studies for comparison. FINDINGS: There are few gas and stool-filled nondilated loops of bowel are seen. No definite free gas is seen within the abdomen however evaluation is limited on supine view. IMPRESSION: 1. Nonobstructive bowel gas pattern. ACT 112: Negative or not required by law. The above report was generated using voice recognition software. It may contain grammatical, syntax o r spelling errors. Electronically signed by: Marycarmen Cline DO 02/25/2021 10:31 AM
--- NOTE | 2021-02-25 10:34 | Billing Data ---
Date of Service February 24, 2021 Coding Level of Care Code 98927 Initial Inpt Care Lvl 2
[2021-02-25] MEDS: LACTATED RINGER'S 1,000 ML IV SCH (11:36)
--- NOTE | 2021-02-25 14:18 | Hospitalist Progress Note ---
Date of Service February 25, 2021 Assessment & Plan (1) Sigmoid diverticulitis: Plan: - Continue n.p.o. status for now - Gentle IV hydration with lactated Ringer's as ordered - General surgery following, consider advancement to clears tomorrow if patient continues to do well - Continue antibiotics with Zosyn as ordered (2) Perforation of sigmoid colon due to diverticulitis: (3) Asthma: Plan: No active issues, patient is satting well on room air, no wheeze on exam Admission and Anticipated Discharge Date Admission Date: February 24, 2021 Subjective Patient seen and examined. She tells me that the pain in her abdomen is improved but still very much present. She is starting to have a small amount of an appetite but she has not eaten in 2 days. Vitals are stable and the patient has been afebrile. Physical Exam Constitutional: cooperative; no acute distress Neck: trachea midline, no thyromegaly Respiratory: normal respiratory effort Auscultation: lungs clear to auscultation bilaterally; no crackles, no rales, no rhonchi and no wheezes Cardiovascular: Rate/Rhythm: regular rate and regular rhythm Heart Sounds: normal S1 and normal S2 Gastrointestinal (Abdomen): Inspection/Auscultation: abdomen normal to inspection Percussion/Palpation: + abdomen tender (L quads), + guarding (vol) and abdomen soft; abdomen not rigid and no hepatosplenomegaly Skin: no rashes, warm and dry Results & Data Results & Data ([facility]) Vital Signs (Past 12 Hours) Vital Signs Temp Pulse Pulse Resp BP Pulse Ox 02/25/21 12:12 36.9 C 75 20 115/64 100 02/25/21 07:48 36.9 C 86 18 107/70 99 02/25/21 07:00 79 02/25/21 03:23 37.1 C 86 18 107/62 99 Laboratory Results Laboratory Results WBC 10.44 K/uL (4.8-10.8) 02/25/21 07:05 RBC 4.20 M/uL (4.2-5.4) 02/25/21 07:05 Hgb 12.3 g/dL (12.0-16.0) 02/25/21 07:05 Hct 35.5 % (37-47) L 02/25/21 07:05 MCV 84.5 fL (80-100) 02/25/21 07:05 MCH 29.3 pg (25-34) 02/25/21 07:05 MCHC 34.6 g/dL (32-36) 02/25/21 07:05 RDW Std Deviation 41.5 fL (36.4-46.3) 02/25/21 07:05 RDW Coeff of Zaira 13.7 % (11.5-14.5) 02/25/21 07:05 Plt Count 197 K/uL (130-400) 02/25/21 07:05 MPV 11.4 fL (7.4-10.4) H 02/25/21 07:05 Immature Gran % (Auto) 0.1 % 02/25/21 07:05 Neut % (Auto) 78.3 % 02/25/21 07:05 Lymph % (Auto) 13.7 % 02/25/21 07:05 [place] % (Auto) 7.5 % 02/25/21 07:05 Eos % (Auto) 0.2 % 02/25/21 07:05 Baso % (Auto) 0.2 % 02/25/21 07:05 Neut # (Auto) 8.18 K/uL (1.4-6.5) H 02/25/21 07:05 Lymph # (Auto) 1.43 K/uL (1.2-3.4) 02/25/21 07:05 [place] # (Auto) 0.78 K/uL (0.11-0.59) H 02/25/21 07:05 Eos # (Auto) 0.02 K/uL (0-0.5) 02/25/21 07:05 Baso # (Auto) 0.02 K/uL (0-0.2) 02/25/21 07:05 Immature Gran # (Auto) 0.01 K/uL (0.00-0.02) 02/25/21 07:05 Sodium 139 mmol/L (136-145) 02/25/21 07:05 Potassium 3.4 mmol/L (3.5-5.1) L 02/25/21 07:05 Chloride 107 mmol/L (98-107) 02/25/21 07:05 Carbon Dioxide 24 mmol/L (21-32) 02/25/21 07:05 Anion Gap 8.0 (3-11) 02/25/21 07:05 BUN 8 mg/dl (7-18) 02/25/21 07:05 Creatinine 0.73 mg/dl (0.6-1.2) 02/25/21 07:05 Est Cr Clr Drug Dosing 106.5 ml/min 02/25/21 07:05 Est GFR ( Amer) 124.5 ml/min 02/25/21 07:05 Est GFR (Non-Af Amer) 107.5 ml/min 02/25/21 07:05 BUN/Creatinine Ratio 10.7 (10-20) 02/25/21 07:05 Glucose 97 mg/dl (70-99) 02/25/21 07:05 Calcium 8.6 mg/dl (8.5-10.1) 02/25/21 07:05 Total Bilirubin 0.5 mg/dl (0.2-1) 02/25/21 07:05 AST 9 U/L (15-37) L 02/25/21 07:05 ALT 17 U/L (12-78) 02/25/21 07:05 Alkaline Phosphatase 75 U/L (45-117) 02/25/21 07:05 Total Protein 6.9 gm/dl (6.4-8.2) 02/25/21 07:05 Albumin 2.9 gm/dl (3.4-5.0) L 02/25/21 07:05 Globulin 4.0 gm/dl (2.5-4.0) 02/25/21 07:05 Albumin/Globulin Ratio 0.7 (0.9-2) L 02/25/21 07:05 Lipase 89 U/L (73-393) 02/24/21 14:49 Urine Color Yellow 02/24/21 15:48 Urine Appearance Clear (Clear) 02/24/21 15:48 Urine pH 5.5 (4.5-7.5) 02/24/21 15:48 Ur Specific Wilbur 1.016 (1.000-1.030) 02/24/21 15:48 Urine Protein Negative (Negative) 02/24/21 15:48 Urine Glucose (UA) Negative (Negative) 02/24/21 15:48 Urine Ketones Trace (Negative) H 02/24/21 15:48 Urine Blood 1+ (Negative) H 02/24/21 15:48 Urine Nitrite Negative (Negative) 02/24/21 15:48 Urine Bilirubin Negative (Negative) 02/24/21 15:48 Urine Urobilinogen Negative (Negative) 02/24/21 15:48 Ur Leukocyte Esterase Negative (Negative) 02/24/21 15:48 Urine WBC (Auto) 0 /hpf (0-5) 02/24/21 15:48 Urine RBC (Auto) 0-4 /hpf (0-4) 02/24/21 15:48 U Hyaline Cast (Auto) 1-5 /lpf (0-5) 02/24/21 15:48 U Epithel Cells (Auto) 10-20 /lpf (0-5) H 02/24/21 15:48 Urine Bacteria (Auto) Negative (Negative) 02/24/21 15:48 POC Ur Test NEG (NEG) 02/24/21 15:48 COVID-19 Eval Order Covid19 at [facility] 02/24/21 17:28 SARS-CoV-2 (PCR) NEGATIVE (Negative) 02/24/21 17:28 Impressions Abdomen/Pelvis CT 02/24/21 15:42 CT OF THE ABDOMEN AND PELVIS WITH CONTRAST CLINICAL HISTORY: LOWER ABD PAIN, FEVER COMPARISON STUDY: Pelvic ultrasound December 31, 2013. TECHNIQUE: Following IV administration of 94 mL of Optiray, axial images of the abdomen and pelvis were obtained from the lung bases to the proximal femurs. Images were reviewed in the axial, sagittal, and coronal planes. IV contrast was administered without complication. Automated exposure control was utilized for the study. A dose lowering technique was utilized adhering to the principles of ALARA. CT DOSE: 425.23 mGy.cm FINDINGS: Lung bases are unremarkable. Hepatic steatosis is noted. There is no biliary or pancreatic ductal dilatation. The spleen, adrenal glands, kidneys and pancreas are unremarkable. There is no hydronephrosis. There is no evidence for a bowel obstruction. The appendix is normal. Note is made of colonic diverticulosis. Moderate wall thickening of the mid sigmoid colon with moderate pericolonic infiltration and adjacent fluid is noted. There is a 1.3 cm peripherally enhancing hypodense focus within the sigmoid colon on axial image 310 of 416. This could reflect a small intramural abscess. There is no drainable fluid collection. There are a few tiny locules of extraluminal gas within the sigmoid mesentery. Major vasculature is patent. No acute fracture or suspicious lesion is identified within visualized skeletal structures. IMPRESSION: Findings consistent with acute sigmoid diverticulitis. Minimal extraluminal gas within the sigmoid mesentery suggests microperforation. Possible small intramural abscess within the sigmoid colon, measuring 1.3 cm. No drainable fluid collection. ACT 112: Negative or not required by law. Electronically signed by: Eric Buckley M.D. 02/24/2021 4:23 PM KUB X-Ray 02/25/21 08:37 XR KUB/Abdomen 1 view CLINICAL HISTORY: diverticulitis COMPARISON STUDY: No previous studies for comparison. FINDINGS: There are few gas and stool-filled nondilated loops of bowel are seen. No definite free gas is seen within the abdomen however evaluation is limited on supine view. IMPRESSION: 1. Nonobstructive bowel gas pattern. ACT 112: Negative or not required by law. The above report was generated using voice recognition software. It may contain grammatical, syntax or spelling errors. Electronically signed by: Marycarmen Cline DO 02/25/2021 10:31 AM PG Care Time/CCT Total # of Minutes Spent Total Time Spent with Patient: Total time spent is greater than 50% in coordination of care (as documented) at patient's floor/unit and/or counseling patient: Coding Level of Care Code 33710 Subseq Hosp Care Lvl 2 Diagnoses Sigmoid diverticulitis K57.32 Perforation of sigmoid colon due to diverticulitis K57.20 Asthma J45.909
[2021-02-26] MEDS: FLUTICASONE/VILANTEROL 200/25MCG 14 PUFFS/INHALER INH SCH (09:08)
--- NOTE | 2021-02-26 09:49 | Hospitalist Progress Note ---
Date of Service February 26, 2021 Assessment & Plan (1) Sigmoid diverticulitis: Plan: doing much better, far less pain, had a BM today advance to clear liquids, plan for full liquids in AM appreciate surgery note, advance diet, likely okay for d/c tomorrow continue Zosyn, change to Augmentin PO on discharge check CBC and BMP in AM stop fluids (2) Perforation of sigmoid colon due to diverticulitis: Plan: continue on Zosyn pain much better, advance diet (3) Asthma: Plan: No active issues, patient is satting well on room air, no wheeze on exam Admission and Anticipated Discharge Date Admission Date: February 24, 2021 Subjective patient doing better today, less pain, had a BM, no nausea gave her liquid diet appreciate surgery consult, will advance diet tomorrow, can likely go home no issues on tele, move to medical floor no fever/chills, no chest pain, no cough, no dyspnea Review of Systems Review of Systems: All systems reviewed & are unremarkable except as noted in Subjective Physical Exam Constitutional: well developed, well nourished and comfortable; no acute distress Neck: trachea midline, no thyromegaly Respiratory: normal respiratory effort, lungs clear to auscultation Cardiovascular: RRR, no murmur, no edema Gastrointestinal (Abdomen): Inspection/Auscultation: abdomen normal to inspection and normal bowel sounds; abdomen not distended Percussion/Palpation: + abdomen tender (LLQ), abdomen soft and normal to percussion; no guarding and abdomen not rigid Musculoskeletal: no cyanosis or clubbing, extremities motor strength 5/5 Skin: no rashes, warm and dry Neurologic: patellar DTR's 2+ bilat, sensation intact and PERRL, EOMI, accommodation nl, no face palsy, no dysarthria Psychiatric: A+Ox3, euthymic affect Results & Data Results & Data ([facility]) Vital Signs (Past 12 Hours) Vital Signs Temp Pulse Resp BP Pulse Ox 02/26/21 07:47 37.0 C 80 17 121/72 96 02/26/21 03:21 36.9 C 74 16 110/70 98 02/25/21 23:41 37.1 C 101 H 17 113/69 98 Medications Administered Current Inpatient Medications Acetaminophen (Acetaminophen 1000 Mg/100 Ml Iv) 1,000 mg IV Q8H PRN; Protocol PRN Reason: Pain Stop: 02/27/21 20:07 Last Admin: 02/25/21 14:08 Dose: 1,000 mg Documented by: Albuterol (Albuterol Hfa 8 Gm Inhaler) 2 puffs INH Q4R PRN PRN Reason: Shortness Of Breath Stop: 03/26/21 20:07 Docusate Sodium (Docusate Sodium 100 Mg Cap) 100 mg PO BID CARLO Stop: 03/28/21 20:59 Last Admin: 02/26/21 20:17 Dose: 100 mg Documented by: Fluticasone/Vilanterol (Fluticasone/Vilanterol 200/25mcg 14 Puffs/Inhaler) 1 puffs INH DAILY CARLO Stop: 03/27/21 08:59 Last Admin: 02/26/21 09:08 Dose: Not Given Documented by: Hydromorphone HCl (Hydromorphone Inj 0.5 Mg/0.5 Ml Syr) 0.5 mg IV Q2H PRN PRN Reason: Pain - Breakthrough Stop: 03/10/21 20:07 Last Admin: 02/25/21 03:31 Dose: 0.5 mg Documented by: Piperacillin Sod/Tazobactam (Sod 3.375 gm/ Dextrose) 115 mls @ 28.75 mls/hr IV Q8H CARLO; Protocol Stop: 03/06/21 22:59 Last Infusion: 02/26/21 19:03 Dose: Infused Documented by: Miscellaneous Information (Piperacill/Tazobac Consult Active) 1 ea N/A UD PRN PRN Reason: Consult Stop: 03/26/21 20:07 Ondansetron HCl (Ondansetron Inj 2 Mg/Ml 2 Ml Vial) 4 mg IV Q6H PRN PRN Reason: Nausea Stop: 03/26/21 20:07 Last Admin: 02/24/21 21:13 Dose: 4 mg Documented by: PG Care Time/CCT Total # of Minutes Spent Total Time Spent with Patient: Total time spent is greater than 50% in coordination of care (as documented) at patient's floor/unit and/or counseling patient: Coding Level of Care Code 05167 Subseq Hosp Care Lvl 2 Diagnoses Sigmoid diverticulitis K57.32 Perforation of sigmoid colon due to diverticulitis K57.20 Asthma J45.909
[2021-02-26] MEDS: PIPERACILLIN/TAZOBACTAM 3.375 GM in DEXTROSE 5% 100 ML IV SCH ×3 (10:01→22:55)
--- NOTE | 2021-02-26 11:17 | Progress Note ---
Date of Service February 26, 2021 doing better, no abdominal pain, no fever, start clear diet today, Assessment & Plan (1) Sigmoid diverticulitis: Plan: pt is a 35 year-old female who presents to Er with 2one day history lower abdominal pain, CT scan- IMPRESSION: Findings consistent with acute sigmoid diverticulitis. Minimal extraluminal gas within the sigmoid mesentery suggests microperforation. Possible small intramural abscess within the sigmoid colon, measuring 1.3 cm. No drainable fluid collection. Plan: no emergent surgery indication now, i agree with medicine team admit pt to hospital conservative treatment first, NPO, IV fluid, iv antibiotic, control pain, repeat labs in morning, may need surgery treatment if pt's condition is worse, pt understood, she agrees with the treatment plan, I answered all questions, will F/U, 02/25/2021 9:41AM doing better, continue IV antibiotic, possible start clear diet tomorrow, repeat labs in morning, will F/U, 02/26/2021 11:16AM doing better, no abdominal pain,. start clear diet today, may d/c home tomorrow, Admission and Anticipated Discharge Date Admission Date: February 24, 2021 Supervising Physician Co-Signing Physician Notes Patient seen and examined, chart reviewed, case discussed with Dr. Daigle and I agree with the assessment and plan as documented above. Briefly, patient is a 35 yo female with history of asthma presenting with abdominal pain and fever. Patient found to have acute sigmoid diverticulitis with microperforation and small abscess formation. No history of prior. On exam she is afebrile, hemodynamically stable, non-toxic in appearance, NAD but in discomfort Skin - intact, no rashes or lesions HEENT - NC/AT, PERRL, MMM, Neck supple Heart - +S1/S2, regular, no m/r/g Lungs - CTA Abd - +BS, soft, ND, tender in lower abdomen with some voluntary guarding, no rebound tenderness Ext - warm, well perfused, no clubbing/edema or cyanosis Neuro - grossly intact Labs and images reviewed. Significant for leukocytosis with Wbc=14.89 with elevated neutrophil:lymphocyte and bands CT with acute sigmoid diverticulitis with minimal extraluminal abhinav suggestive of microperforation as well as possible intramural abscess of 1.3cm Assessment/Plan -35yo female presenting with acute sigmoid diverticulitis with microperforation and small abscess. She is afebrile, HD stable, non-toxic in appearance. Abdomen is tender but non-surgical. Abscess is small <4cm and will most likely resolve with antibiotics. No indication for surgical drainage at this time -Admit to medical service -Keep NPO for now, will advance diet as tolerated as symptoms improve -IVF and pain control -Treatment with IV antibiotics - Zosyn - for now - should complete 10-14 day course of antibiotics -Appreciate General Surgery assistance. No surgical intervention at this time. -Repeat imaging should symptoms persist or worsen -Followup colonoscopy in 6-8 weeks recommended -Remainder of plan as above Subjective Patient seen and examined. She tells me that the pain in her abdomen is improved but still very much present. She is starting to have a small amount of an appetite but she has not eaten in 2 days. Vitals are stable and the patient has been afebrile. Physical Exam Eyes: PERRL, conjunctivae normal, anicteric sclerae Neck: trachea midline, no thyromegaly Respiratory: normal respiratory effort, lungs clear to auscultation Cardiovascular: RRR, no murmur, no edema Gastrointestinal (Abdomen): soft, NT, ND, BS + Musculoskeletal: no cyanosis or clubbing, extremities motor strength 5/5 Neurologic: patellar DTR's 2+ bilat, sensation intact Psychiatric: A+Ox3, euthymic affect Results & Data ([facility]) Vital Signs (Past 12 Hours) Vital Signs Temp Pulse Resp BP Pulse Ox 02/26/21 07:47 37.0 C 80 17 121/72 96 02/26/21 03:21 36.9 C 74 16 110/70 98 02/25/21 23:41 37.1 C 101 H 17 113/69 98
[2021-02-26] MEDS ORDERED: DOCUSATE SODIUM 100 MG CAP PO ONE (12:43)
[2021-02-26] MEDS: DOCUSATE SODIUM 100 MG CAP PO SCH (20:17)
[2021-02-27] MEDS: PIPERACILLIN/TAZOBACTAM 3.375 GM in DEXTROSE 5% 100 ML IV SCH (06:26)
[2021-02-27 07:16] LABS: Hemoglobin 13.5 g/dL (12.0-16.0); Mean Corpuscular Hemoglobin 28.8 pg (25-34); Mean Corpuscular Hgb Conc 34.6 g/dL (32-36); Mean Corpuscular Volume 83.2 fL (80-100); Mean Platelet Volume 11.3 fL (7.4-10.4); Platelet Count 251 K/uL (130-400); RDW Coefficient of Variation 13.4 % (11.5-14.5); RDW Standard Deviation 40.6 fL (36.4-46.3); Red Blood Count 4.69 M/uL (4.2-5.4); White Blood Count 4.61 K/uL (4.8-10.8)
[2021-02-27 08:14] LABS: BUN Creatinine Ratio 10.2 (10-20); Calcium 9.2 mg/dl (8.5-10.1); Est GFR (African American) 131.6 ml/min; Est GFR (Non-African American) 113.6 ml/min; Potassium 3.5 mmol/L (3.5-5.1)
[2021-02-27] MEDS: FLUTICASONE/VILANTEROL 200/25MCG 14 PUFFS/INHALER INH SCH (08:29)
[2021-02-27] MEDS: DOCUSATE SODIUM 100 MG CAP PO SCH (08:30)
--- NOTE | 2021-02-27 11:09 | Discharge Summary ---
Date of Service February 27, 2021 Admission HPI Per Admitting Provider Yoselin is a 35-year-old female with a notable past medical history of asthma and X2 with tubal ligation who presented to [facility] for evaluation of abdominal pain. She reports that this began yesterday, initially beginning as a somewhat crampy, dull intermittent pain within the lower quadrants. She said that it got much worse yesterday evening, so much that it interrupted her sleep. Thereafter, she did develop more sharp left lower quadrant pain. She also had a T-max of approximately 101.8 at home. She did endorse some nausea without vomiting. Denies any major changes in her bowel movements, other than may be more loose stool yesterday. No hematochezia or melena. She has not taken anything for pain prior to arrival. She says that her last menstrual period ended several days ago, up until this time they have been otherwise regular. Denies any intermittent spotting or bleeding. No other complaints. Regarding her past medical history, it is significant for asthma for which she takes of Breo and albuterol inhaler as needed. She also endorses having cervical HPV once in the past with subsequent biopsy. She also endorses occasionally using medical marijuana for her anxiety. She has no personal history of bowel disease or family history of bowel disease. Denies any history of inflammatory bowel disease. Abdominal surgery - c/s x 2. FHX - Notes that her mom had diverticulitis in her older years, but otherwise no problems throughout. Endorses diabetes in her maternal family. Also says that her paternal grandfather had multiple strokes and heart attacks.. SHX - She denies smoking cigarettes or tobacco use. She denies regular alcohol use. Medical marijuana as above. Of note, patient identifies as a [employer] and has requested that she not receive any sort of blood products, including albumin, immunoglobulins, clotting factors, hemoglobin/packed blood products, interferons. She has requested that in any special circumstance, she and her power of attorneywho is her husbandare spoken to first. In the ED, patient was found to be afebrile and hemodynamically stable. Did undergo CT of the abdomen pelvis, which showed diverticulitis with possible small microperforation and intramural abscess. Given IV fluids, as well as morphine and Zofran. Received 1 L bolus of normal saline. Principal Diagnosis Acute sigmoid diverticulitis Discharge Exam Constitutional well developed, well nourished and comfortable; no acute distress Neck trachea midline, no thyromegaly Respiratory normal respiratory effort, lungs clear to auscultation Cardiovascular RRR, no murmur, no edema Gastrointestinal (Abdomen) Inspection/Auscultation: abdomen normal to inspection and normal bowel sounds; abdomen not distended Percussion/Palpation: abdomen soft and normal to percussion; abdomen nontender, no guarding and abdomen not rigid Musculoskeletal no cyanosis or clubbing, extremities motor strength 5/5 Skin no rashes, warm and dry Neurologic patellar DTR's 2+ bilat, sensation intact and PERRL, EOMI, accommodation nl, no face palsy, no dysarthria Psychiatric A+Ox3, euthymic affect Discharge Data Allergies Allergy/AdvReac Type Severity Reaction Status Date / Time No Known Allergies Allergy Verified 02/24/21 15:28 Consultations 02/24/21 17:22 ED Decision to Admit Stat 02/24/21 18:11 Consult General Surgery Routine Ordered Studies 02/24/21 15:42 CT abd pelvis IV con only Stat Hospital Course (1) Sigmoid diverticulitis: doing much better, no pain today, had a BM on 02/26 advanced to full liquids, can go home on low fiber diet no fever, WBC is 4k treated with Zosyn IV for 3 days, will change to Augmentin 875mg BID x 11 more days low fiber diet for 2 weeks, stay well hydrated follow up with PCP in a week and request referral to GI for colonoscopy in 6-8 weeks (2) Perforation of sigmoid colon due to diverticulitis: treated with Zosyn pain resolved, tolerating diet d/c home (3) Asthma: No active issues, patient is satting well on room air, no wheeze on exam Total Time Total Time Spent Total Time Spent (In Minutes): 31 Discharge Plan Discharge Items Patient Disposition: Home - Self-Care Reason For Visit: DIVERTICULITIS Discharge Diagnosis: Sigmoid diverticulitis Condition on Discharge: Good Goals: complete course of Augmentin low fiber diet for 2 weeks referral to GI for colonoscopy in 6-8 weeks Activity: Resume your previous activity Driving/Machine Use: No limitations Non-emergency contact: Primary Care Provider Call non-emergency contact if: you have any medication questions and your symptoms worsen Follow-up/Referrals: Quyen Rodriguez [Primary Care Provider] - (one week) Diet: Low Fiber Addtl Attending Provider Instructions: Medications: - AUGMENTIN: take one tab twice a day, start taking this evening, take until prescription is complete Acute sigmoid diverticulitis great response to Zosyn IV, pain subsided, moving bowels follow a low fiber diet for the next two weeks important to stay well hydrated, stay active to make stools easy to pass follow up with PCP next week for hospital transition visit she can refer you to gastroenterology for a colonoscopy in 6-8 weeks after two weeks you can implement fiber in your diet as we discussed, want stools to be formed but soft and easy to pass if you have trouble eating enough fiber you can always take a fiber supplement like Metamucil or Benifiber stay well hydrated, get exercise to promote good bowel function Pending Studies at Discharge: No Stand-Alone Forms: My [employer], Smoking Cessation Medications and DC Order Prescriptions: New amoxicillin-pot clavulanate [Augmentin] 875-125 mg tablet 1 tab PO BID 11 Days Qty: 22 RF: 0 Continued multivitamin Tablet 1 tab PO DAILY RF: 0 cetirizine [Zyrtec] 10 mg Tablet 10 mg PO DAILY RF: 0 zinc 50 mg Tablet 50 mg PO DAILY RF: 0 albuterol sulfate 90 mcg/actuation HFA aerosol inhaler 2 puff INHALATION .Q4-6HR PRN (Reason: Shortness Of Breath) RF: 0 cholecalciferol (vitamin D3) [Vitamin D3] 25 mcg (1,000 unit) Capsule 0 mcg PO DAILY RF: 0 folic acid 0.8 mg Capsule 0.8 mg PO DAILY RF: 0 omega 2-anv-phq-fish oil [Fish Oil] 1,000 mg (120 mg-180 mg) Capsule 1 cap PO DAILY RF: 0 Probiotic 10 billion cell Capsule 10,000 mmu cells PO DAILY RF: 0 Breo Ellipta 200-25 mcg/dose blister with device 1 inh INHALATION DAILY RF: 0 elderberry fruit and flower 460-115 mg Capsule 1 cap PO DAILY RF: 0 Discharge Orders: Discharge Order (Routine); Ordered 02/27/21 Ordered By: Balwinder Barajas/Other Patient Handouts: Low-Fiber Diet Admission Data Admit Date/Time: 02/24/21 18:00 Attending Provider: Balwinder Ernandez Admit Provider: Hollis Daigle Primary Care Provider: Quyen Rodriguez Other Providers: Mia Sosa ; Ricardo Fierro Coding Level of Care Code D/C DAY MANAGEMENT >30 MINS Diagnoses Sigmoid diverticulitis K57.32 Perforation of sigmoid colon due to diverticulitis K57.20 Asthma J45.909
--- NOTE | 2021-02-27 11:25 | Progress Note ---
Date of Service February 27, 2021 Assessment & Plan (1) Sigmoid diverticulitis: Plan: pt is a 35 year-old female who presents to Er with 2one day history lower abdominal pain, CT scan- IMPRESSION: Findings consistent with acute sigmoid diverticulitis. Minimal extraluminal gas within the sigmoid mesentery suggests microperforation. Possible small intramural abscess within the sigmoid colon, measuring 1.3 cm. No drainable fluid collection. Plan: no emergent surgery indication now, i agree with medicine team admit pt to hospital conservative treatment first, NPO, IV fluid, iv antibiotic, control p ain, repeat labs in morning, may need surgery treatment if pt's condition is worse, pt understood, she agrees with the treatment plan, I answered all questions, will F/U, 02/25/2021 9:41AM doing better, continue IV antibiotic, possible start clear diet tomorrow, repeat labs in morning, will F/U, 02/26/2021 11:16AM doing better, no abdominal pain,. start clear diet today, may d/c home tomorrow, 02/27/2021 11:20AM, Dr. Fierro doing better, tolerated diet, pt can be discharged home today, po Cipro + flagy for 7 days, F/U GI doctor in 4-5 months for possible colonoscopy, F/U colorectal surgeon as needed, sign off today, please call with questions, thanks, Admission and Anticipated Discharge Date Admission Date: February 24, 2021 Supervising Physician Co-Signing Physician Notes Patient seen and examined, chart reviewed, case discussed with Dr. Daigle and I agree with the assessment and plan as documented above. Briefly, patient is a 35 yo female with history of asthma presenting with abdominal pain and fever. Patient found to have acute sigmoid diverticulitis with microperforation and small abscess formation. No history of prior. On exam she is afebrile, hemodynamically stable, non-toxic in appearance, NAD but in discomfort Skin - intact, no rashes or lesions HEENT - NC/AT, PERRL, MMM, Neck supple Heart - +S1/S2, regular, no m/r/g Lungs - CTA Abd - +BS, soft, ND, tender in lower abdomen with some voluntary guarding, no rebound tenderness Ext - warm, well perfused, no clubbing/edema or cyanosis Neuro - grossly intact Labs and images reviewed. Significant for leukocytosis with Wbc=14.89 with elevated neutrophil:lymphocyte and bands CT with acute sigmoid diverticulitis with minimal extraluminal abhinav suggestive of microperforation as well as possible intramural abscess of 1.3cm Assessment/Plan -35yo female presenting with acute sigmoid diverticulitis with microperforation and small abscess. She is afebrile, HD stable, non-toxic in appearance. Abdomen is tender but non-surgical. Abscess is small <4cm and will most likely resolve with antibiotics. No indication for surgical drainage at this time -Admit to medical service -Keep NPO for now, will advance diet as tolerated as symptoms improve -IVF and pain control -Treatment with IV antibiotics - Zosyn - for now - should complete 10-14 day course of antibiotics -Appreciate General Surgery assistance. No surgical intervention at this time. -Repeat imaging should symptoms persist or worsen -Followup colonoscopy in 6-8 weeks recommended -Remainder of plan as above Subjective patient doing better today, less pain, had a BM, no nausea gave her liquid diet appreciate surgery consult, will advance diet tomorrow, can likely go home no issues on tele, move to medical floor no fever/chills, no chest pain, no cough, no dyspnea 02/27/2021 11:20AM doing better, no abdominal pain, no nausea, no vomiting, no fever, tolerated diet, Physical Exam Eyes: PERRL, conjunctivae normal, anicteric sclerae Neck: trachea midline, no thyromegaly Respiratory: normal respiratory effort, lungs clear to auscultation Cardiovascular: RRR, no murmur, no edema Gastrointestinal (Abdomen): soft, NT, ND, BS + Musculoskeletal: no cyanosis or clubbing, extremities motor strength 5/5 Neurologic: patellar DTR's 2+ bilat, sensation intact Psychiatric: A+Ox3, euthymic affect Results & Data ([facility]) Vital Signs (Past 12 Hours) Vital Signs Temp Pulse Pulse Resp BP BP Pulse Ox 02/27/21 11:07 36.7 C 70 62 16 112/78 110/72 96 02/27/21 08:06 36.7 C 70 16 112/78 96 02/27/21 03:09 36.6 C 64 16 101/65 98 Laboratory Results Abnormal lab results 07/22/21 07/22/21 Range/Units 06:59 06:59 WBC 4.61 L (4.8-10.8) K/uL MPV 11.3 H (7.4-10.4) fL Chloride 108 H (98-107) mmol/L
== END 2021-02-27 12:00 | disposition home or self-care (01) | DRG 392 ==
LOC: ED 12:54 → 2S 18:00 → SUATTDRO 18:00 → 2S 19:54 → 2N 02-26 13:57